=== PATIENT | female | born 1970 | race Caucasian/White ===

== ENCOUNTER 2019-12-11 00:36 | Emergency (ER) | payer OTHER, MEDICARE, SELFPAY ==
[2019-12-11 00:37] VITALS: BP 176/81; PULSE 116; RESP 16; TEMP 36.4; O2SAT 95; BMI 31.0
--- NOTE | 2019-12-11 00:52 | ED.DCSUM_ITS ---
History of Present Illness Chief Complaint: Abd Pain Informant: Patient Onset: Yesterday Current Severity: Moderate Maximum Severity: Severe Narrative: Patient presents secondary to upper abdominal pain along with nausea and vomiting. She has a history of irritable bowel. She has had prior colon resection along with hysterectomy, cholecystectomy, appendectomy. Significant other states that around 9 PM last evening she developed upper abdominal pain along with nausea and vomiting. She denies history of pancreatitis. She did have 2 beers yesterday. Patient denies fever or chills. - Past Medical History (1) Irritable bowel Status: Chronic (2) History of colon resection Status: Chronic (3) History of appendectomy Status: Chronic (4) Hx of cholecystectomy Status: Chronic (5) H/O: hysterectomy Status: Chronic Past Medical History - Allergies and Home Meds Allergies/Adverse Reactions: Allergies meperidine HCl [From Demerol] Allergy (Verified 12/11/19 00:39) Rash morphine Allergy (Verified 12/11/19 00:39) Rash Primary Care Physician: [facility] [address] Doctor,Out of [NON-STAFF] - Prior records reviewed: Yes Lives: Spouse/ Significant Other Smoking Status: Never smoker Alcohol: Rare Review of Systems General: Denies: Chills, Fever Eyes: Denies: Visual changes - bilaterally ENT: Denies: Bilateral ear pain Cardiovascular: Denies: Chest pain Respiratory: Denies: Dyspnea, Cough Gastrointestinal: Reports: Abdominal pain, Nausea, Vomiting, Diarrhea - Chronic diarrhea Genitourinary: Denies: Dysuria Musculoskeletal: Denies: Swelling, Extremity Pain Skin: Denies: Rash Neurological: Denies: Headache Hematologic: Denies: Easy bruising, Easy bleeding Allergy: Denies: Uticaria Physical Exam Vital Signs/Narrative: Vital Signs Temp Pulse Resp BP Pulse Ox 12/11/19 00:37 97.5 F L 116 H 16 176/81 H 95 Inital Vital Signs reviewed: Yes General: Well nourished, Well developed Head: Normocephalic ENT: Moist mucous membranes Neck: Supple Cardiovascular: Regular rate, Regular rhythm Respiratory: No distress, CTA bilaterally Abdomen: Soft, Tender - Epigastric tenderness to palpation Extremities: Nontender Skin: Normal color Neurological: Alert, Oriented x3 Psychological: - - Anxious Diagnostic/Tx/Re-eval Laboratory Results 12/11/19 12/11/19 12/11/19 00:50 00:50 01:40 WBC Cancelled 7.9 Corrected WBC Cancelled RBC Cancelled 4.47 Hgb Cancelled 13.1 Hct Cancelled 40.7 MCV Cancelled 91.1 MCH Cancelled 29.3 MCHC Cancelled 32.2 RDW Std Deviation Cancelled 47.8 H RDW Coeff of Lenard Cancelled 14.3 Plt Count Cancelled 254 MPV Cancelled 10.4 Immature Gran % (Auto) Cancelled 0.500 Neut % (Auto) Cancelled 72.4 H Lymph % (Auto) Cancelled 19.3 [place] % (Auto) Cancelled 7.1 Eos % (Auto) Cancelled 0.6 Baso % (Auto) Cancelled 0.1 Absolute Neuts (auto) Cancelled 5.7 Absolute Lymphs (auto) Cancelled 1.53 Total Counted Cancelled Neutrophils % (Manual) Cancelled Band Neutrophils % Cancelled Lymphocytes % (Manual) Cancelled Monocytes % (Manual) Cancelled Eosinophils % (Manual) Cancelled Basophils % (Manual) Cancelled Metamyelocytes % Cancelled Myelocytes % Cancelled Promyelocytes % Cancelled Blast Cells % Cancelled Plasma Cell % (Manual) Cancelled Other Cells % Cancelled Nucleated RBC % Cancelled 0 Nucleated RBCs/100 WBC Cancelled Differential Comment Cancelled Diff Path Review Cancelled Hypersegmented Neuts Cancelled Atypical Lymphocytes Cancelled Reactive Lymphocytes Cancelled Smudge Cells Cancelled Toxic Granulation Cancelled Toxic Vacuolation Cancelled Dohle Bodies Cancelled Ariella Rods Cancelled Platelet Estimate Cancelled Plt Morphology Comment Cancelled RBC Morphology Cancelled Polychromasia Cancelled Hypochromasia Cancelled Poikilocytosis Cancelled Basophilic Stippling Cancelled Anisocytosis Cancelled Microcytosis Cancelled Macrocytosis Cancelled Spherocytes Cancelled Sickle Cells Cancelled Target Cells Cancelled Tear Drop Cells Cancelled Ovalocytes Cancelled Stomatocytes Cancelled [place] Bodies Cancelled Byers Cells Cancelled Bite Cells Cancelled Crenated Cell Cancelled Acanthocytes (Spur) Cancelled Rouleaux Cancelled Schistocytes Cancelled Sodium 140 Potassium 4.3 Chloride 111 H Carbon Dioxide 22.0 Anion Gap 7 BUN 13 Creatinine 0.71 Estim Creat Clear Calc 67.33 Est GFR (MDRD) Af Amer 111 Est GFR (MDRD) Non-Af 92 BUN/Creatinine Ratio 18.3 Glucose 115 H Calcium 9.3 Total Bilirubin 0.30 Direct Bilirubin < 0.05 AST 38 H ALT 43 Alkaline Phosphatase 160 H Total Protein 7.5 Albumin 3.9 Globulin 3.6 Lipase 169 - Medical Decision Making Patient was initially given Toradol, Zofran, and Protonix. Nursing staff states that when they went to get her to the bathroom she started developing cramping and vomiting again. She was given Reglan and Benadryl. Patient was able to rest for a time with this, but again when getting up to get to the restroom developed recurrent cramps and vomiting. She was given a dose of Phenergan and Bentyl. At this time patient is resting comfortably. She does overall feel improved. She has Bentyl, Zofran, and Phenergan at home. She is received 2 L of IV fluids. She is to return for worsening symptoms or any concerns. ED Disposition - Plan for ED Patient: Disposition: Home or Assisted Living Diagnosis: Vomiting Instructions: ED Nausea Vomiting Adult Referrals: [facility] [address] Doctor,Out of [NON-STAFF] -
[2019-12-11] MEDS: Ondansetron 4 MG/2 ML Vial IV (01:04)
[2019-12-11] MEDS: Ketorolac 15 MG/ML Vial IV (01:05)
[2019-12-11] MEDS: 0.9% Normal Saline 1,000 ML 1000 ML IV ×2 (01:06→02:26)
[2019-12-11 01:37] LABS: AST(SGOT) 38 U/L (15-37); Alanine Aminotransfer ALT/SGPT 43 U/L (13-56); Albumin, Serum 3.9 g/dL (3.2-5.0); Alkaline Phosphatase 160 U/L (45-117); Anion Gap 7 (5-15); BUN 13 mg/dL (7-18); BUN/Creat Ratio 18.3 RATIO (10-20); Bilirubin, Direct < 0.05 mg/dL (0.00-0.30); Calcium,Total 9.3 mg/dL (8.5-10.1); Chloride 111 mmol/L (98-107); Creatinine, Serum 0.71 mg/dL (0.55-1.02); EST Glomerular Filtration Rate 92 mL/min (>60); Est Glom Filt Rate - Afr Amer 111 mL/min (>60); Estimated Creatinine Clearance 67.33 ml/min; Globulin 3.6 g/dL (2.2-4.2); Glucose 115 mg/dL (74-106); Lipase 169 U/L (73-393); Potassium 4.3 mmol/L (3.5-5.1); Protein, Total 7.5 g/dL (6.4-8.2); Sodium Level 140 mmol/L (136-145)
[2019-12-11 01:50] LABS: Absolute Lymphocyte Count 1.53 X10^3/uL (0.83-4.51); Absolute Neutrophil Count 5.7 X10^3/uL (2.0-7.7); Basophil# 0.01 X10^3/uL; Basophil% 0.1 % (0-1); Eosinophil# 0.05 X10^3/uL; Eosinophils% 0.6 % (0-5); Hematocrit 40.7 % (37-47); Hemoglobin 13.1 g/dL (12.0-15.0); Lymphocyte # 1.53 X10^3/ul (4.0); Lymphocyte % 19.3 % (19-41); Mean Corp Hgb Conc 32.2 g/dL (32-36); Mean Corpuscular Hgb 29.3 pg (27.0-32.0); Mean Corpuscular Volume 91.1 fL (81-99); Mean Platelet Vol. 10.4 fl (6.2-12.0); Monocyte# 0.56 X10^3/uL; Monocyte% 7.1 % (0-10); NRBC Flagged by Analyzer 0 % (0-5); Neutrophil # 5.73 X10^3/uL (2.7-7.7); Neutrophil % 72.4 % (47-70); Platelet Count 254 K/mm3 (150-450); RBC Distribution Width CV 14.3 % (11.6-14.6); RBC Distribution Width SD 47.8 fl (35.1-43.9); Red Blood Count 4.47 M/mm3 (4.2-5.4); White Blood Count 7.9 K/mm3 (4.4-11.0)
[2019-12-11] MEDS: DiphenhydrAMINE 50 MG/ML Syringe 12.5 MG IV (01:51)
[2019-12-11] MEDS: Metoclopramide 10 MG/2 ML Vial IV (01:51)
[2019-12-11] MEDS: Dicyclomine 20 MG/2 ML Vial IM (03:22)
[2019-12-11] MEDS: proMETHazine 25 MG/ML Syringe 12.5 MG IV (03:22)
[2019-12-11 03:27] VITALS: BP 130/68; PULSE 116; RESP 16; O2SAT 96
[2019-12-11 04:20] VITALS: BP 109/78; PULSE 112; RESP 16; O2SAT 94
== END 2019-12-11 04:20 | disposition home or self-care (01) ==
PROVIDERS: Emergency Provider Emergency Medicine
DX: R11.2 Nausea with vomiting, unspecified (principal); R19.7 Diarrhea, unspecified; K58.9 Irritable bowel syndrome, unspecified; Z79.899 Other long term (current) drug therapy; Z90.710 Acquired absence of both cervix and uterus; Z90.49 Acquired absence of other specified parts of digestive tract
CPT/HCPCS: 80048; 80076; 83690; 85025; 96361; 96365; 96372; 96375; 99284; J7030; A4216; J2405